=== PATIENT | male | born 1950 | race Caucasian/White ===

== ENCOUNTER 2024-02-09 07:23 | Day surgery (SDC) | payer MEDICARE, SELFPAY ==
[2024-02-09] MEDS: LACTATED RINGERS 1000 ML 1,000 ML 100 ML IV (07:20)
[2024-02-09] MEDS: SODIUM CHLORIDE 0.9 % (FLUSH) 10 ML SYRINGE IVF (07:37)
[2024-02-09 07:38] VITALS: BP 132/84; PULSE 71; RESP 16; TEMP 36.6; O2SAT 98; BMI 27.8
[2024-02-09] MEDS: LIDOCAINE 1 % PF 30 ML INJECTION (09:50)
[2024-02-09] MEDS: BUPIVACAINE 0.5% 30 ML INJECTION (09:50)
[2024-02-09 11:07] VITALS: BP 118/79; PULSE 64; RESP 16; TEMP 36.6; O2SAT 99
--- NOTE | 2024-02-09 11:07 | P.GSOP_ITS ---
Operative Note Date of procedure: 02/09/24 Pre-op diagnosis: Right inguinal hernia Post-op diagnosis: Same Type of Procedure: Open right inguinal hernia repair with mesh Indications: The patient is a 74-year-old male who developed a symptomatic right inguinal hernia after lifting. Because it has been causing him discomfort and is interfering with activity, after discussion of options he elected to proceed with repair. Procedure Description: After discussing the risks and benefits of the procedure, the patient signed informed consent.? The operative site was marked and the patient was brought to the operating room and placed on the operating table in supine position.? Care was taken to pad the patient's pressure points.?? The patient was then given sedation by anesthesia.?? The operative site was then prepped and draped in the usual sterile fashion.? A time-out was then performed. Local anesthetic was injected into the skin and subcutaneous tissue overlying the inguinal canal. An ilioinguinal nerve block was performed. An oblique incision was made over the external ring. Dissection was carried down into the subcutaneous tissue using cautery until the external oblique fascia was encountered. This was cleared off. The external ring was identified and after injection of more local anesthetic, the external oblique was incised using a knife. This was extended using the Metzenbaum scissors with care to dissect the underlying cord structures away from the fascia before cutting. The cord was cleared from the inside of the inguinal canal and looped with a Malcolm drain. A an indirect inguinal hernia was identified along with a moderate-sized cord lipoma. The lipoma and hernia sac were dissected off of the cord structures. The sac was opened to ensure there were no intra-abdominal structures contained within. There were not. The sac was then ligated and the proximal and reduced into the abdomen. Similarly, the cord lipoma was examined to ensure there were no intra-abdominal structures within. This was then ligated with suture and reduced. A piece of soft polypropylene mesh was obtained and cut to size. This was secured to the pubic tubercle using to 0 Prolene on a double-armed suture. The Prolene was run along the inguinal ligament inferiorly and along the transversalis fascia superiorly, securing the tails around the cord and re- creating the internal ring. The ring was just large enough to permit my fingertip. The wound was examined for hemostasis which was found to be adequate. The external oblique fascia was then reapproximated with absorbable suture. The wound was then closed in layers including Rochelle's fascia and the dermis with absorbable suture. The skin was then closed with a running subcuticular suture. Glue was then applied.. Instrument, sponge, and needle counts were correct at the end of the case. Both testicles were examined and found to be in the scrotum at the end of the case. The patient was woken and taken to the recovery area in stable condition. ? The patient tolerated the procedure well. Findings: Indirect inguinal hernia with a cord lipoma Implants: Bard soft mesh Anesthesia: MAC Surgeon: Rebecca García MD Estimated blood loss (mL): 5 Condition: stable Disposition: same day
[2024-02-09 11:15] VITALS: BP 125/80; PULSE 66; RESP 16; O2SAT 99
--- NOTE | 2024-02-09 11:28 | P.ANES_ITS ---
Anesthesia Charges Start Date/Time Anesthesia Start Date: 02/09/24 Anesthesia Start Time: 09:23 Stop Date/Time Anesthesia Stop Date: 02/09/24 Anesthesia Stop Time: 11:09 Summary Extremes of Age - Over 70 or under 1: [employer]
[2024-02-09 11:30] VITALS: BP 131/81; PULSE 67; RESP 16; O2SAT 99
--- NOTE | 2024-02-09 11:32 | W.ANESCHARGE ---
Anesthesia Charges Start Date/Time Anesthesia Start Date: 02/09/24 Anesthesia Start Time: 09:23 Stop Date/Time Anesthesia Stop Date: 02/09/24 Anesthesia Stop Time: 11:09 Summary Extremes of Age - Over 70 or under 1: MDA
[2024-02-09 11:45] VITALS: BP 129/80; PULSE 68; RESP 16; O2SAT 99
== END 2024-02-09 12:05 | disposition home or self-care (01) ==
PROVIDERS: PCP Family Medicine; Visit Provider Surgery
PROC: (CPT 49505; principal; 2024-02-09 08:45)
DX: K40.90 Unilateral inguinal hernia, without obstruction or gangrene, not specified as recurrent (principal)
CPT/HCPCS: 49505; 00830; 99100; C1781; J0665; J2001; J2405; J2704; J3010; J3490; J7120